=== PATIENT | male | born 1965 | race Caucasian/White ===

== ENCOUNTER 2021-01-02 11:55 | Emergency (ER) | payer OTHER ==
[~2021-01-02] VITALS: Ht 175.3 cm; Wt 70.3 kg
[2021-01-02 12:22] VITALS: BP 144/98
[2021-01-02 12:27] VITALS: BP 154/77
[2021-01-02] MEDS ORDERED: BACTRIM DS PO STA (13:07)
--- NOTE | 2021-01-02 13:08 | ER.PDOC ---
General Chief Complaint: Skin Rash/Abscess Stated Complaint: INJURY LEFT ELBOW Time seen by MD: 12:47 Source: patient Exam Limitations: no limitations History of Present Illness Initial Comments Patient complains of pustules and redness to his skin of his left elbow for the past 3 days. He states the one of his pustules to the left elbow started draining today which is why he came in. Patient denies any actual joint pain and states he can move his arm okay. He denies any fevers nausea vomiting. His tetanus is not up-to-date. He denies any medications any allergies. Allergies: Coded Allergies: No Known Allergies (Unverified , 10/18/14) Home Meds No Active Prescriptions or Reported Meds Past Medical History Medical History: asthma Surgical History: other Social History Alcohol Use: none Drug Use: none Constitutional: no symptoms reported EENTM: no symptoms reported Gastrointestinal: no symptoms reported Musculoskeletal: no symptoms reported Skin: rash, other (abscess) Physical Exam General Appearance: alert, no distress Skin: warm/dry, pointing, other (Patient has 2 distinct pustules to left elbow both with surrounding cellulitis. One of the pustules is currently draining and I was able to express more pus from it. There is no induration or fluctuance around those pustules. Patient has normal range of motion of his left elbow without pain.) Location: LUE Extremities: nml ROM Respiratory: no resp. distress NEURO/PSYCH: oriented x 3 Results/Orders Results/Orders Orders - WENDI BATISTA MD Diph,Pertuss(Acell),Tet Vac/Pf (Adacel V (01/02/21 13:30) Sulfamethoxazole/Trimethoprim (Bactrim D (01/02/21 13:07) Sulfamethoxazole/Trimethoprim (Bactrim D (01/02/21 13:11) Diph,Pertuss(Acell),Tet Vac/Pf (Adacel V (01/02/21 13:12) Vital Signs Date Time Temp Pulse Resp B/P (MAP) Pulse Ox O2 Delivery O2 Flow Rate FiO2 01/02/21 12:27 98.0 102 18 154/77 (102) 98 Room Air 01/02/21 12:22 98.0 102 18 98 01/02/21 12:22 98.0 102 18 Progress Progress Patient was given a tetanus as well as a first dose of Bactrim here in the emergency department has been advised to keep the area clean and dry. He is also been advised to have a wound check in 2 to 3 days or to return sooner if worsening redness or any joint pain occurs or fevers. Patient will be given a prescription for Bactrim for home. ER DEPART Departure Time of Disposition: 13:14 Disposition: 01 HOME / SELF CARE / HOMELESS Impression: Primary Impression: Cellulitis of left elbow Additional Impression: MRSA (methicillin resistant Staphylococcus aureus) Condition: Stable Referrals: PCP,UNKNOWN (PCP) PRIMARY CARE PROVIDER Scripts No Active Prescriptions or Reported Meds Duration or Time Spent with Pa: 6 Problem Qualifiers WENDI BATISTA MD Jan 02, 2021 13:08
[2021-01-02] MEDS ORDERED: BACTRIM DS ONE (13:11)
[2021-01-02] MEDS ORDERED: ADACEL VIAL IM ONE ×2 (13:12→13:30)
[2021-01-02 13:35] VITALS: BP 150/79
== END 2021-01-02 13:35 | disposition home or self-care (01) ==
LOC: ER 11:55
DX: L03.114 Cellulitis of left upper limb (principal); B95.62 Methicillin resistant Staphylococcus aureus infection as the cause of diseases classified elsewhere; J45.909 Unspecified asthma, uncomplicated
CPT/HCPCS: 90471; 90715; 99283

== ENCOUNTER 2023-03-25 15:04 | Emergency (ER) | payer SELFPAY ==
[~2023-03-25] VITALS: Ht 167.6 cm; Wt 61.2 kg
[2023-03-25 15:48] VITALS: BP 143/88; PULSE 91; RESP 16; TEMP 98.2; O2SAT 98
[2023-03-25] MEDS ORDERED: CLEOCIN PO STA (16:03)
[2023-03-25] MEDS ORDERED: TORADOL IM STA (16:03)
[2023-03-25] MEDS ORDERED: CLEOCIN ONE (16:16)
[2023-03-25] MEDS ORDERED: TORADOL ONE (16:16)
== END 2023-03-25 16:26 | disposition home or self-care (01) ==
LOC: ER 15:04
DX: L08.9 Local infection of the skin and subcutaneous tissue, unspecified (principal); M00.9 Pyogenic arthritis, unspecified
CPT/HCPCS: 99283; 96372; J1885